=== PATIENT | female | born 1970 | race Caucasian/White ===

== ENCOUNTER 2018-02-07 09:50 | Day surgery (SDC) | payer OTHER, MEDICAID, SELFPAY ==
[2018-02-07] VITALS (8 sets, daily range): BP systolic 110–139; BP diastolic 69–93; PULSE 60–80; RESP 10–18; TEMP 36.3–36.9; O2SAT 93–100; BMI 22.6
[2018-02-07] MEDS: SODIUM CHLORIDE 0.9% 1,000 ML 200 ML IV (10:21)
--- NOTE | 2018-02-07 10:57 | PM.HP.1 ---
History of Present Illness Date Patient Seen: 02/07/18 Time Patient Seen: 10:57 Chief complaint: colonoscopy [id number] Narrative: The patient is a woman here for a screening colonoscopy. Her last exam was 8 years ago. Polyps removed at that time. She was having that test done at such a young age because of concern about diverticulitis per her history. Patient History Medical History Essential hypertension with goal blood pressure less than 130/85 (Chronic) Surgical History History of (Resolved) History of removal of ovarian cyst (Resolved) Family & Social History Social History: household members spouse Meds Allergies Allergy/AdvReac Type Severity Reaction Status Date / Time Amoxicillin Allergy Unknown Uncoded 07/03/17 12:55 Penicillin Allergy Unknown Uncoded 07/03/17 12:55 Metoclopramide AdvReac Unknown Uncoded 07/03/17 12:55 Review of Systems Review of Systems All systems reviewed & are unremarkable except as noted in HPI and below Exam Vital Signs (past 8 hours): - 02/07/18 10:06 Temperature 97.3 F L Pulse Rate 80 Respiratory Rate 16 Blood Pressure 139/93 H Pulse Oximetry 100 Oxygen Delivery Method Room Air Narrative Exam Narrative: Operative no apparent distress. Lungs are clear to auscultation no rales or rhonchi heart regular rate and rhythm without murmur gallop. Abdomen is soft nontender without mass. Alert and oriented x3. Assessment & Plan Plan: Assessment/Plan Narrative: For screening colonoscopy. History of polyps. I have discussed the procedure and the rationale with the patient including risks of bleeding, perforation which would necessitate a major operation, failure to find remove all lesions and the potential to tattoo. They appeared to understand and wished to proceed.
--- NOTE | 2018-02-07 11:00 | PM.PREOP ---
Pre-operative Note Interval Note Pre-op Check: Yes History & Physical exam performed today by Physician Changes: No ASA Class (for procedural sedation): II
[2018-02-07] MEDS: fentaNYL 250 MCG/5 ML INJ IV (11:26)
[2018-02-07] MEDS: MIDAZOLAM 5 MG/5 ML VIAL IV (11:26)
--- NOTE | 2018-02-07 11:33 | PM.OP.ENDO ---
Operative Date/Time/Diagnoses Date of procedure: 02/07/18 Time of procedure: 11:33 Pre-op diagnosis: Screening examination. Last exam 8 years ago. She gives a history of a colonoscopy in the past with polypectomy. Post-op diagnosis: same Procedure & Clinicians Study performed: Colonoscopy Same procedure as scheduled: Yes Indications: Screening. History of polyps Surgeon: Kza Bland Procedure Notes SCOAP/Timeout: Performed Procedure in detail: The patient was placed in the left lateral decubitus position and underwent IV sedation directed by the surgeon consisting of fentanyl and Versed. Digital exam was unremarkable. The scope was inserted and advanced through the rectum into the sigmoid, descending, transverse, and ascending colon. Colon was quite tortuous and difficult to distended but was otherwise normal.. The cecum was reached identified by the ileocecal valve and the appendiceal opening. The ileocecal valve was successfully cannulated. The terminal ileum was normal in appearance. The scope was gradually brought out. No Polyps were found. The scope ultimately was retroflexed in the rectum. The appearance was normal. The scope was removed and the patient tolerated the procedure well Scope withdrawal time: 6 min Sedation minutes: 25 Findings: other findings (Tortuosity but otherwise normal exam) Specimen(s): none sent Complications: none Recommendations: Colonscopy in 5 years (Due to personal history of polyps) Follow up: as needed Disposition: PACU
== END 2018-02-07 12:19 | disposition home or self-care (01) ==
PROVIDERS: PCP Family Medicine Geriatric Medicine; Visit Provider Specialist
PROC: 0DJD8ZZ Inspection of Lower Intestinal Tract, Via Natural or Artificial Opening Endoscopic (ICD-10-PCS; CPT 45378; principal; 2018-02-07 10:45)
DX: Z86.010 Personal history of colon polyps (principal); I10 Essential (primary) hypertension
CPT/HCPCS: 45378; 99152; 99153; J2250; J3010